=== PATIENT | female | born 1980 | race Caucasian/White ===

== ENCOUNTER 2022-05-13 14:20 | Outpatient (CLI) | payer MEDICAID, SELFPAY ==
--- NOTE | 2022-05-13 14:30 | CRLHL7_ITS ---
For Patients: As a result of the Cures Act, medical imaging exams and procedure reports are released immediately into your electronic medical record. You may view this report before your referring provider. If you have questions, please contact your health care provider. BILATERAL BREAST MRI WITHOUT GADOLINIUM, 05/13/2022 CLINICAL HISTORY: Pain and burning in breasts for two weeks. Evaluate for breast silicone implant rupture. COMPARISON: Breast MRI 05/18/2018. CONTRAST: None. TECHNIQUE: The patient was positioned prone and scanned using a breast coil. Several imaging sequences of both breasts were obtained using 1-1.5 mm thick slices with no gap including T2-weighted and silicone selective sequences in axial and sagittal planes. BILATERAL BREAST MRI FINDINGS: Post operative changes of BILATERAL mastectomies and implant reconstruction. BILATERAL silicone implants are intact. No evidence of intracapsular rupture or extracapsular silicone extravasation. No abnormal lymph nodes. IMPRESSIONS AND RECOMMENDATIONS: No evidence of silicone implant intracapsular rupture or extracapsular extravasation. If breast systems are focal then diagnostic ultrasound would be recommended for further evaluation. Note: This study is designed to evaluate for implant rupture and is not a breast cancer screening study. BI-RADS: N/A Dictated by Amira Burgos MD @ 05/14/2022 8:56:31 AM JR/Dictated by: Amira Burgos MD @ 05/14/2022 8:56:00 AM (Electronically Signed)
== END 2022-05-13 14:21 | disposition home or self-care (01) ==
LOC: MRI 14:21
PROVIDERS: PCP Family Medicine; Visit Provider Physician Assistant
DX: N64.4 Mastodynia (principal)
CPT/HCPCS: 77047

== ENCOUNTER 2022-05-15 14:30 | Outpatient (RCR) | payer MEDICAID, SELFPAY ==
--- NOTE | 2022-04-28 16:23 | ONC.NURNOTE ---
Patient would like to continue seeing Dr. Wise, so she will be staying with the [facility].
--- NOTE | 2022-05-01 15:09 | ONC.NURNOTE ---
Received call from pt noting she has had bruising around left reconstructed breast in the last few days. She called Dr. Camara's office (plastic surgery) and was seen there by a covering provider, who planned to review with Dr. Camara when she returns to clinic 05/11/22. Since that appt now she notices swelling around implant and pain along her chest wall. 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 Recommended pt call Dr. Camara's office with question of imaging to assess implant integrity; if unable to get in there, recommended f/u with PCP/a provider in next week to discuss breast US. 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 She will continue discussion with Dr. Camara and will keep us posted about imaging in the next week.
--- NOTE | 2022-05-15 16:42 | ONC.NURNOTE ---
Met with patient after her oncology visit. Assisted patient with scheduling her chest CT. Copy of todays note and MRI report faxed to Dr. Camara with request for them to call patient to schedule consultation to discuss removal of her implants.
== END 2022-06-15 23:59 | disposition home or self-care (01) ==
LOC: CCIC 14:30
PROVIDERS: PCP Family Medicine; Visit Provider Nurse Practitioner Family
DX: C50.912 Malignant neoplasm of unspecified site of left female breast (principal); Z17.1 Estrogen receptor negative status [ER-]; R07.89 Other chest pain; R20.8 Other disturbances of skin sensation
CPT/HCPCS: 99212; 99213; 99214; 99215

== ENCOUNTER 2022-05-18 08:54 | Outpatient (CLI) | payer MEDICAID, SELFPAY ==
--- NOTE | 2022-05-18 09:00 | CRLHL7_ITS ---
For Patients: As a result of the Century Cures Act, medical imaging exams and procedure reports are released immediately into your electronic medical record. You may view this report before your referring provider. If you have questions, please contact your health care provider. Indication: Breast Cancer; new onset chest pain, INFILTRATING DUCTAL CARCINOMA LT BREAST Technique: Post contrast CT chest. 75 cc Isovue 370 intravenous contrast. Please note that all CT scans at this facility use dose modulation, iterative reconstruction, and/or weight-based dosing when appropriate to reduce radiation dose to as low as reasonably achievable. Comparison: CT PET 01/16/2021. Breast MRI 05/13/2022 Findings: Postoperative changes of bilateral mastectomy with implant reconstruction noted. Similar fold within the left lateral implant. No axillary or mediastinal adenopathy. No evidence of internal mammary adenopathy. Mild residual thymic tissue in the anterior mediastinum. The upper abdomen is normal. Normal adrenal glands. Normal visualized liver. Lungs are clear. No infiltrate or fibrosis. No edema or effusion. No pneumothorax. A small 1.9 cm hiatal hernia is incidentally noted. Osseous structures are normal. No pulmonary nodule. Impression: No evidence of metastatic disease. Clear lungs. Please note that all CT scans at this facility use dose modulation, iterative reconstruction, and/or weight-based dosing when appropriate to reduce radiation dose to as low as reasonably achievable. Dictated by Jorje Christianson MD @ 05/18/2022 9:56:52 AM (Electronically Signed)
== END 2022-05-18 08:55 | disposition home or self-care (01) ==
LOC: CT 08:55
PROVIDERS: PCP Family Medicine; Visit Provider Nurse Practitioner Family
DX: C50.912 Malignant neoplasm of unspecified site of left female breast (principal); R07.89 Other chest pain
CPT/HCPCS: 71260; Q9967

== ENCOUNTER 2023-01-05 13:23 | Outpatient (RCR) | payer MEDICAID, SELFPAY ==
--- NOTE | 2022-06-23 08:01 | ONC.NURNOTE ---
Addendum entered by Vani Price 06/30/22 10:25: Patient called to update that she has been taking Gabapentin 200 mg QHS and this has significantly improved her pain. She is requesting an updated Rx be sent to her pharmacy. Original Note: Pt called reporting increase in pain along left chest wall/incisional burning consistent with pain pattern worked up by Tracy Muñiz CNP at appt 05/2022. Chest CT showed possible folding of left implant; pt following with Dr. Lowe with Plastic Surgery to have implants removed. Next available surgery date is not until 10/2022. She has been taking 100mg Gabapentin QHS, which has been managing well but is now not lasting long enough. Reviewed with Dr. Sumner. Pt to try taking 200mg at HS or 100-200 mg BID and report back to us which works better; prescription to be updated then.
== END 2023-07-04 23:59 | disposition home or self-care (01) ==
LOC: CCIC 13:23
PROVIDERS: PCP Family Medicine; Visit Provider Internal Medicine Hematology & Oncology
DX: C50.912 Malignant neoplasm of unspecified site of left female breast (principal); Z17.1 Estrogen receptor negative status [ER-]; Z90.13 Acquired absence of bilateral breasts and nipples
CPT/HCPCS: 99212; 99213

== ENCOUNTER 2023-10-19 07:30 | Outpatient (CLI) | payer MEDICAID, SELFPAY ==
--- OUTSIDE RECORDS SUMMARY | 2023-10-22 20:42 | XMS_ITS | Clinical Summary ---
Author Organization [facility] Address [address] [place] [address] Care Team Providers Care Marriage And Family Therapist Name Role Phone Lyn Murray MD Primary Care Provider + Allergies Active Allergy Reactions Criticality Noted Date Comments Beta Adrenergic Blockers 08/18/2022 Corticosteroids 08/18/2022 Formoterol 08/18/2022 Mometasone 08/18/2022 Shrimp Rash Low 08/31/2022 Medications Medication Sig Dispensed Refills Start Date End Date Status albuterol (PROAIR HFA/PROVENTIL HFA/VENTOLIN HFA) 108 (90 Base) MCG/ACT inhaler Inhale 2 puffs into the lungs every 6 hours as needed for shortness of breath, wheezing or cough Active vitamin D3 (CHOLECALCIFEROL) 50 mcg (2000 units) tablet Take 1 tablet by mouth daily Active fluticasone (FLONASE) 50 MCG/ACT nasal spray [place] 1 spray into both nostrils daily Active fluticasone (FLOVENT HFA) 44 MCG/ACT inhaler Inhale 1 puff into the lungs 2 times daily Active gabapentin (NEURONTIN) 100 MG capsule Take 200 mg by mouth At Bedtime Active ferrous fumarate 65 mg, [place]. FE,-Vitamin C 125 mg (VITRON C) 65-125 MG TABS tablet Take 1 tablet by mouth daily Active montelukast (SINGULAIR) 10 MG tablet Take 10 mg by mouth At Bedtime Active multivitamin w/minerals (MULTI-VITAMIN) tablet Take 1 tablet by mouth daily Active oxybutynin (DITROPAN) 5 MG tablet Take 5 mg by mouth 3 times daily Active venlafaxine (EFFEXOR) 100 MG tablet Take 100 mg by mouth 2 times daily Active venlafaxine (EFFEXOR) 75 MG tablet Take 75 mg by mouth 3 times daily Active oxyCODONE (ROXICODONE) 5 MG tabletIndications:St atus post implant removal from both breasts Take 1-2 tablets (5-10 mg) by mouth every 4 hours as needed for moderate to severe pain 20 tablet 09/02/2022 Active senna-docusate (SENOKOT-S/PERICOLAC E) 8.6-50 MG tabletIndications:St atus post implant removal from both breasts Take 1-2 tablets by mouth 2 times daily 20 tablet 09/02/2022 Active Social History Tobacco Use Types Packs/Day Years Used Date Smoking Tobacco: Never Smokeless Tobacco: Never Tobacco Cessation:Counseling Given: Not Answered Alcohol Use Standard Drinks/Week Comments Not Currently 0 (1 standard drink = 0.6 oz pur e alcohol) Adolescent Education Answer Date Record ed Getting School Help Needed Not on file 01/23 Sex and Gender Information Value Date Recorded Sex Assigned at Not on file Gender Identity Not on file Sexual Orientation Not on file Last Filed Vital Signs Vital Sign Reading Time Taken Comments Blood Pressure 136/90 09/02/2022 6:38 PM CDT Pulse 92 09/02/2022 4:30 PM CDT Temperature 36.3 ??C (97.4 ??F) 09/02/2022 4:30 PM CD T Respiratory Rate 12 09/02/2022 4:30 PM CDT Oxygen Saturation 96% 09/02/2022 4:15 PM CDT Inhaled Oxygen Concentration - - Weight 85 kg (187 lb 6.4 oz) 09/02/2022 10:43 AM CDT Height 171.5 cm (5' 7.5) 09/02/2022 10:43 AM CD T Body Mass Index 28.92 09/02/2022 10:43 AM CDT Plan of Treatment Health Maintenance Due Date Last Done Comments ADVANCE CARE PLANNING 1981 ANNUAL REVIEW OF HM ORDERS 1981 GLUCOSE 1981 YEARLY PREVENTIVE VISIT 1981 HIV SCREENING 1996 HEPATITIS C SCREENING 10/21/1999 HEPATITIS B IMMUNIZATION (1 of 3 - 19+ 3-dose series) 2000 LIPID 2021 COVID-19 Vaccine (2022-2 4 season) 2023 05/28/2021, 08/09/2020, 07/17/2020 PHQ-2 (once per calendar year) 2023 PAP 07/05/2023 07/04/2020, 07/04/2020 INFLUENZA VACCINE (Season Ended) 2024 01/06/2021, 04/19/2020 DTAP/TDAP/TD IMMUNIZATION (2 - Td or Tdap) 07/06/2027 07/05/2017 HPV IMMUNIZATION Aged Out No longer e ligible based on patient's age to complete this topic IPV IMMUNIZATION Aged Out No longer e ligible based on patient's age to complete this topic MENINGITIS IMMUNIZATION Aged Out No l onger eligible based on patient's age to complete this topic Pneumococcal Vaccine: Pediatrics (0 to 5 Years) and At-Risk Patients (6 to 64 Years) Aged Out No longer eligible b ased on patient's age to complete this topic RSV MONOCLONAL ANTIBODY Aged Out No l onger eligible based on patient's age to complete this topic Medical Devices Explanted Type Area Machine Striper Device Identifier Shelf Expiration Date Model / Serial / Lot Silicone Breast Implants Explanted:Qty: 2 on 09/02/[address] [facility] Bilateral: Breast Care Teams Marriage And Family Therapist Relationship Specialty Start Date End Date Lyn Murray MD [facility] [address] [place] [address] PCP - General Family Medicine 08/19/22
--- OUTSIDE RECORDS SUMMARY | 2023-10-22 20:42 | XMS_ITS | Referral Summary ---
Author Organization [facility] Address [address] [place] [address] Care Team Providers Care Tank Setter Name Role Phone Lyn Murray MD Primary [...] Active fluticasone (FLONASE) 50 MCG/ACT nasal spray [place] 1 spray into both nostrils daily Active fluticasone (FLOVENT HFA) 44 MCG/ACT inhaler Inhale 1 puff into the lungs 2 times daily Active gabapentin (NEURONTIN) 100 MG capsule Take 200 mg by mouth At Bedtime Active ferrous fumarate 65 mg, [place]. FE,-Vitamin C 125 mg (VITRON C) 65-125 [...] 09/02/2022 10:43 AM CDT Plan of Treatment Not on file Medical Devices Explanted Type Area Remote Sensing Technologist Device Identifier Shelf Expiration Date Model / Serial / Lot Silicone Breast Implants Explanted:Qty: 2 on 09/02/2022 at [facility] Bilateral: Breast Care Teams Tank Setter Relationship Specialty Start Date End Date Lyn Murray MD [facility] [address] [place] [address] PCP - General Family Medicine 08/19/22
--- OUTSIDE RECORDS SUMMARY | 2023-10-22 20:42 | XMS_ITS | Clinical Summary ---
Author Organization [facility] [facility] Address [place], [place] [address] Care Team Providers Care Supervisor Bottle House Cleaners Name Role Phone Lyn Murray MD Primary Care Provider + Allergies Active Allergy Reactions Criticality Noted Date Comments Beta-Adrenergic Agents *Unknown 03/24/2019 Corticosteroids (Glucocorticoids) *Unknown Formoterol Fumarate *Unknown 03/24/2019 Mometasone Furoate *Unknown 03/24/2019 Medications Medication Sig Dispensed Refills Start Date End Date Status oxyCODONE-acetamin ophen, 5-325 mg, (PERCOCET) 5-325 mg per tabletIndications: S/P breast reconstruction, bilateral Take 1-2 tablets by mouth every 4 hours if needed for Pain Max acetaminophen dose: 4000mg in 24 hrs. 30 tablet 04/13/2019 Active sennosides-docusat e, 8.6-50 mg, (SENOKOT S) 8.6-50 mg tabletIndications: S/P breast reconstruction, bilateral Take 1-2 tablets by mouth 2 times daily. 20 tablet 04/13/2019 Active Multivitamins with Fluoride (MULTI-VITAMIN ORAL) Take 1 tablet by mouth once daily. Active miscellaneous medical supply misc As directed 1 tablet once daily. 5000 IU Active iron,carbonyl/asco rbic acid (VITRON-C ORAL) Take 1 tablet by mouth once daily. Active venlafaxine HCl (EFFEXOR ORAL) Take 1 capsule by mouth once daily. Active montelukast (SINGULAIR) 10 mg tablet Take 10 mg by mouth at bedtime. Active MAGNESIUM GLUCONATE ORAL Take 1 tablet by mouth. Active traZODone (DESYREL) 50 mg tablet Take 50 mg by mouth at bedtime. Active albuterol sulfate (ALBUTEROL INHL) Inhale by mouth. Ac tive fluticasone propionate (FLONASE NASL) Inhale in the nostril(s). Active LORAZEPAM ORAL Take by mouth each time if needed. 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 Triple negative 07/03. Triple negative malignant neoplasm of breast Social History Tobacco Use Types Packs/Day Years Used Date Smoking Tobacco: Never Smokeless Tobacco: Never Alcohol Use Standard Drinks/Week Comments Yes 1 (1 standard drink = 0.6 oz pur e alcohol) Occasional Sex and Gender Information Value Date Recorded Sex Assigned at Not on file Gender Identity Not on file Sexual Orientation Not on file Obstetrics History Para Term AB IAB SAB Ectopic Multiple Livin g Live Births 5 4 Date Outcome GA Total Labor Labor/2nd/3rd Weight Sex Type Anes PTL Albertina A1 A5 Name Clin Para Para Para Para Last Filed Vital Signs Vital Sign Reading Time Taken Comments Blood Pressure 146/89 04/13/2019 6:06 PM [facility] Pulse 80 04/13/2019 6:06 PM [facility] Temperature 36 ??C (96.8 ??F) 04/13/2019 6:06 PM [facility] Respiratory Rate 16 04/13/2019 6:06 PM [facility] Oxygen Saturation 95% 04/13/2019 6:06 PM [facility] Inhaled Oxygen Concentration - - Weight 89.8 kg (197 lb 14.4 oz) 019 12:03 PM [facility] Height 171.5 cm (5' 7.5) 04/13/2019 12 :03 PM [facility] Body Mass Index 30.54 04/13/2019 12:03 PM [facility] Plan of Treatment Health Maintenance Due Date Last Done Comments Tdap 1992 Depression screening for age 12+ 1993 HIV for age 15-65 1996 BMI (ht and wt on same day) for age 18+ 10/21/1999 Hepatitis C screening for age 18-79 10/21/1999 Tetanus booster 2001 COVID-19 vaccine series (2022-24 season) 2023 Pap test for age 21-65 07/05/2023 , 07/04/2020, 07/05/2017, Additional history exists Influenza for age 9-49 01/02/2024 Pneumococcal series for age 6-64 Aged Out No longer eligible based on patient's age to complete this topic Medical Devices Implanted Type Area Media Analyst Device Identifier Shelf Expiration Date Model / Serial / Lot [id number] ast 560cc Inspira Cohesive Smooth Mod Gel Implanted:Qty: 1 on 04/13/2019 by Lizett Camara MD at [facility] Explanted:at [facility] (Quantity not on file) Left: Breast [employer] - [place] 12/31/2023 SCM-[id number]# / [id number] / [id number] ast 605cc Inspira Cohesive Smooth Full Gel Implanted:Qty: 1 on 04/13/2019 by Lizett Camara MD at [facility] Explanted:at [facility] (Quantity not on file) Right: Breast [employer] [place] 2023 SCF-605# / [id number] / Natrelle Inspira Sizer Full Profile Implanted:Qty: 1 on 04/13/2019 by Lizett Camara MD at [facility] Right: Breast 08/29/2023 [id number]-F605 / [id number] / Description:NATRELLE INSPIRA SIZER FULL PROFILE Explanted Type Area Media Analyst Device Identifier Shelf Expiration Date Model / Serial / Lot Natrelle Inspira Sizer Moderate Profile Explanted:Qty: 1 on 04/13/2019 by Lizett Camara MD at [facility] Right: Breast [id number] / [id number] / Description:NATRELLE INSPIRA SIZER MODERATE PROFILE Natrelle Inspira Sizer Full Profile Explanted:Qty: 1 on 04/13/2019 by Lizett Camara MD at [facility] Right: Breast 01/16/2024 [id number] / [id number] / Description:RASHEL SALGUERO SIZER FULL PROFILE Procedures Procedure Name Priority Date/Time Associated Diagnosis Comments CHEESE PACKER THIN PREP PAP SCREEN IMAGED Routine 07/04/2020 1:30 PM [facility] from Last 3 Months or Most Recently Relevant to Health Maintenance Results * CHEESE PACKER THIN PREP PAP SCREEN IMAGED (07/04/2020 1:30 PM [facility]) Case Report Gynecologic Cytology Report ? Case: [id number] ? Authorizing Provider: ??Lyn Murray MD ??Collected: ? 07/04/2020 1330 ? Ordering Location: ? [facility] ?Received: ?07/08/2020 0802 ? First Screen: ?[place] ? Specimen: ?CHEESE PACKER ThinPrep Vial Screening, Cervical/Vaginal ? 07/16/2020 1:59 PM CDT [facility] INTERPRETATION/ RESULT NEGATIVE FOR INTRAEPITHELIAL LESION OR MALIGNANCY (NIL) (none) 07/16/2020 1:59 PM CDT [facility] IMEN ADEQUACY Satisfactory for evaluation Endocervical component present 07/16/2020 1:59 PM CDT [facility] HPV REQUEST HPV and PAP 07/16/2020 1:59 PM CDT [facility] Last Pap Date 07/05/2017 07/16/2020 1:59 PM CDT [facility] Last Pap Result 1:59 PM CDT [facility] Comment:normal Additional Information 07/16/2020 1:59 PM CDT [facility] Comment: Interpreted at [facility] - [address] [place] [id number] Automated Review Successful 07/16/2020 1:59 PM CDT [facility] Comment:Specimen processed s uccessfully by automated chemistry technologist device, Eye-QPrep Imaging System, [employer] ANCILLARY TESTING CHEESE PACKER HPV Ordered, Please see separate report 07/16/2020 1:59 PM CDT [facility] Note The pap test is a screening technique, not a diagnostic procedure. It is used primarily to screen for squamous cancers and precursor lesions. Published studies have shown that it is subject to both false negative and false positive results. The pap test should not be used as the sole means to diagnose or exclude pre-malignant and malignant lesions. 07/16/2020 1:59 PM CDT [facility] Other (Cervical/Vagina l) 07/04/2020 1:30 PM [facility] 07/08/2020 8:02 AM [facility] Lyn Murray MD [facility] [address] [place] [address], [place] from Last 3 Months or Most Recently Relevant to Health Maintenance Advance Directives * Full Code (Latest Code Status on File) Date Activated Date Inactivated Comments 04/13/2019 11:32 AM 04/13/2019 10:27 PM Question Answer Comments Code Status Discussion: Not Discussed Care Teams Supervisor Bottle House Cleaners Relationship Specialty Start Date End Date Lyn Murray MD [address] [place] [address] PCP - General Family Practice 04/11/19
== END 2023-10-19 07:31 | disposition home or self-care (01) ==
LOC: NFLDREF 10-22 20:41
PROVIDERS: PCP Family Medicine; Referring Provider Family Medicine; Visit Provider Family Medicine
DX: R74.01 Elevation of levels of liver transaminase levels (principal); E03.9 Hypothyroidism, unspecified; G25.81 Restless legs syndrome; E78.5 Hyperlipidemia, unspecified; E55.9 Vitamin D deficiency, unspecified
CPT/HCPCS: 80053; 80061; 82652; 82728; 84439; 84443

== ENCOUNTER 2023-12-01 15:00 | Outpatient (RCR) | payer MEDICAID, SELFPAY | END 2024-01-01 23:59 | disposition home or self-care (01) | LOC: CCIC 15:00 | PROVIDERS: PCP Family Medicine; Visit Provider Internal Medicine Hematology & Oncology | DX: C50.912 Malignant neoplasm of unspecified site of left female breast (principal); Z17.1 Estrogen receptor negative status [ER-]; Z90.13 Acquired absence of bilateral breasts and nipples | CPT/HCPCS: 99213; 99214; G0463 ==

== ENCOUNTER 2024-01-18 07:30 | Outpatient (CLI) | payer MEDICAID, SELFPAY ==
--- OUTSIDE RECORDS SUMMARY | 2024-01-20 11:26 | XMS_ITS | Clinical Summary ---
Author Organization [facility] Address [address] [place] [address] Care Team Providers Care Manufacturer Representative Name Role Phone Lyn Murray MD Primary [...] Active fluticasone (FLONASE) 50 MCG/ACT nasal spray [place] 1 spray into both nostrils daily Active fluticasone (FLOVENT HFA) 44 MCG/ACT inhaler Inh[place] 1 puff into the lungs 2 times daily Active gabapentin (NEURONTIN) 100 MG capsule Take 200 mg by mouth At Bedtime Active ferrous fumarate 65 mg, [place]. FE,-Vitamin C 125 mg (VITRON C) 65-125 [...] - 19+ 3-dose series) 2000 LIPID 2021 PHQ-2 (once per calendar year) 2023 PAP 07/05/2023 07/04/2020, 07/04/2020 COVID-19 Vaccine (4 - 2024-2 5 season) 2024 05/28/2021, 08/09/2020, 07/17/2020 INFLUENZA VACCINE (#1) 2024 , 04/19/2020 DTAP/TDAP/TD IMMUNIZATION (2 - Td or [...] this topic Medical Devices Explanted Type Area Conveyor Installer Device Identifier Shelf Expiration Date Model / Serial / Lot Silicone Breast Implants Explanted:Qty: 2 on 09/02/2022 at [facility] Bilateral: Breast Care Teams Manufacturer Representative Relationship Specialty Start Date End Date Lyn Murray MD [facility] [address] [place] [address] PCP - General Family Medicine 08/19/22
--- OUTSIDE RECORDS SUMMARY | 2024-01-20 11:26 | XMS_ITS | Clinical Summary ---
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 Triple negative 07/03. [...] Comments Blood Pressure 146/89 04/13/2019 6:06 PM FLOOR HAND Pulse 80 04/13/2019 6:06 PM FLOOR HAND Temperature 36 ??C (96.8 ??F) 04/13/2019 6:06 PM FLOOR HAND Respiratory Rate 16 04/13/2019 6:06 PM FLOOR HAND Oxygen Saturation 95% 04/13/2019 6:06 PM FLOOR HAND Inhaled Oxygen Concentration - - Weight 89.8 kg (197 lb 14.4 oz) 019 12:03 PM FLOOR HAND Height 171.5 cm (5' 7.5) 04/13/2019 12 :03 PM FLOOR HAND Body Mass Index 30.54 04/13/2019 12:03 PM FLOOR HAND Plan of Treatment Health Maintenance Due Date Last Done Comments Tdap 1992 Depression screening for age 12+ 1993 HIV for age 15-65 1996 BMI (ht and wt on same day) for age 18+ 10/21/1999 Hepatitis C screening for age 18-79 10/21/1999 Tetanus booster 2001 Pap test for age 21-65 07/05/2023 , 07/04/2020, 07/05/2017, Additional history exists COVID-19 vaccine series ( season) 2024 Influenza for age 9-49 01/02/2024 Pneumococcal series for age 6-64 Aged Out No longer eligible based on patient's age to complete this topic Medical Devices Implanted Type Area Envelope Folder Device Identifier Shelf Expiration Date Model / Serial / Lot [id number] ast 560cc Inspira Cohesive Smooth Mod Gel Implanted:Qty: 1 on 04/13/2019 by Lizett Camara MD at [facility] Explanted:at [facility] (Quantity not on file) Left: Breast [employer] - Inamed 12/31/2023 SCM-560# / [id number] / [id number] ast 605cc Inspira Cohesive Smooth Full Gel Implanted:Qty: 1 on 04/13/2019 by Lizett Camara MD at [facility] Explanted:at [facility] (Quantity not on file) Right: Breast [employer] - [employer]amed 2023 SCF-605# / [id number] / Natrelle Inspira Sizer Full Profile Implanted:Qty: 1 on 04/13/2019 by Lizett Camara MD at [facility] Right: Breast 08/29/2023 MS-F605 / [id number] / Description:NATRELLE INSPIRA SIZER FULL PROFILE Explanted Type Area Envelope Folder Device Identifier Shelf Expiration Date Model / Serial / Lot Natrelle Inspira Sizer Moderate Profile Explanted:Qty: 1 on 04/13/2019 by Lizett Camara MD at [facility] Right: Breast [id number]-M650 / [id number] / Description:NATRELLE INSPIRA SIZER MODERATE PROFILE Natrelle Inspira Sizer Full Profile Explanted:Qty: 1 on 04/13/2019 by Lizett Camara MD at [facility] Right: Breast 01/16/2024 [id number]605 / [id number] / Description:RASHEL SALGUERO SIZEKevin FULL PROFILE Procedures Procedure Name Priority Date/Time Associated Diagnosis Comments TRIMMER MACHINE THIN PREP PAP SCREEN IMAGED Routine 07/04/2020 1:30 PM FLOOR HAND from Last 3 Months or Most Recently Relevant to Health Maintenance Results * TRIMMER MACHINE THIN PREP PAP SCREEN IMAGED (07/04/2020 1:30 PM FLOOR HAND) Case Report Gynecologic Cytology Report ? Case: [id number] ? Authorizing Provider: ??Lyn Murray MD ??Collected: ? 07/04/2020 1330 ? Ordering Location: ? [facility] ?Received: ?07/08/2020 0802 ? First Screen: ?[place] ? Specimen: ?TRIMMER MACHINE ThinPrep Vial Screening, Cervical/Vaginal ? 07/16/2020 1:59 PM CDT [facility] LABORATORY-C ENTRAL LABORATORY INTERPRETATION/ RESULT NEGATIVE FOR INTRAEPITHELIAL LESION OR MALIGNANCY (NIL) (none) 07/16/2020 1:59 PM CDT [facility] IMEN ADEQUACY Satisfactory for evaluation Endocervical component present 07/16/2020 1:59 PM CDT [facility] ENTRAL LABORATORY HPV REQUEST HPV and PAP 07/16/2020 1:59 PM CDT [facility] ENTRAL LABORATORY Last Pap Date 07/05/2017 07/16/2020 1:59 PM CDT [facility] Last Pap Result 1:59 PM CDT [facility] ENTRAL LABORATORY Comment:normal Additional Information 07/16/2020 1:59 PM CDT [facility] Comment: Interpreted at [facility] - [address] [place] [address] Automated Review Successful 07/16/2020 1:59 PM CDT [facility] Comment:Specimen processed s uccessfully by automated service car driver device, Hive MediaPrep Imaging System, [employer] ANCILLARY TESTING TRIMMER MACHINE HPV Ordered, Please see separate report 07/16/2020 1:59 PM CDT [facility] LABORAT[facility] Note The pap test is a [...] and malignant lesions. 07/16/2020 1:59 PM CDT [facility] Other (Cervical/Vagina l) 07/04/2020 1:30 PM FLOOR HAND 07/08/2020 8:02 AM FLOOR HAND Lyn Murray MD PATHOLOGY/CYTOLO GY [facility] [address] [place] [address], [place] from Last 3 Months or Most Recently Relevant to Health Maintenance Advance Directives * Full Code (Latest Code Status on File) Date Activated Date Inactivated Comments 04/13/2019 11:32 AM 04/13/2019 10:27 PM Question Answer Comments Code Status Discussion: Not Discussed Care Teams Dog Pound Attendant Relationship Specialty Start Date End Date Lyn Murray MD [address] [place] [address] PCP - General Family Practice 04/11/19
--- OUTSIDE RECORDS SUMMARY | 2024-01-20 11:26 | XMS_ITS | Referral Summary ---
Author Organization [facility] Address [address] [place] [address] Care Team Providers Care Brim Pouncing Machine Operator Name Role Phone Lyn Murray MD Primary [...] Active fluticasone (FLONASE) 50 MCG/ACT nasal spray [place] 1 spray into both nostrils daily Active fluticasone (FLOVENT HFA) 44 MCG/ACT inhaler Inhale 1 puff into the lungs 2 times daily Active gabapentin (NEURONTIN) 100 MG capsule Take 200 mg by mouth At Bedtime Active ferrous fumarate 65 mg, [place]. FE,-Vitamin C 125 mg (VITRON C) 65-125 [...] on file Medical Devices Explanted Type Area Pasteuriser Operator Device Identifier Shelf Expiration Date Model / Serial / Lot Silicone Breast Implants Explanted:Qty: 2 on 09/02/2022 at [facility] Bilateral: Breast Care Teams Brim Pouncing Machine Operator Relationship Specialty Start Date End Date Lyn Murray MD [facility] [address] [place] [address] PCP - General Family Medicine 08/19/22
== END 2024-01-18 07:31 | disposition home or self-care (01) ==
LOC: NFLDREF 01-20 11:23
PROVIDERS: PCP Family Medicine; Referring Provider Family Medicine; Visit Provider Family Medicine
DX: R79.89 Other specified abnormal findings of blood chemistry (principal); E03.9 Hypothyroidism, unspecified
CPT/HCPCS: 80053; 84443

== ENCOUNTER 2024-02-24 13:15 | Outpatient (CLI) | payer MEDICAID, SELFPAY ==
--- OUTSIDE RECORDS SUMMARY | 2024-02-24 13:18 | XMS_ITS | Referral Summary ---
Author Organization [facility] Address [address] [place] [address] Care Team Providers Care Scales Inspector Name Role Phone Lyn Murray MD Primary Care Provider + Allergies Active Allergy Reactions Criticality Noted Date Comments Beta Adrenergic Blockers 08/18/2022 Corticosteroids 08/18/2022 Formoterol 08/18/2022 Mometasone 08/18/2022 Shrimp Rash Low 08/31/2022 Medications albuterol (PROAIR HFA/PROVENTIL HFA/VENTOLIN HFA) 108 (90 Base) MCG/ACT inhaler Inhale 2 puffs into the lungs every 6 hours as needed for shortness of breath, wheezing or cough Active vitamin D3 (CHOLECALCIFERO L) 50 mcg (2000 units) tablet Take 1 tablet by mouth daily Active fluticasone (FLONASE) 50 MCG/ACT nasal spray [place] 1 spray into both nostrils daily Active fluticasone (FLOVENT HFA) 44 MCG/ACT inhaler Inhale 1 puff into the lungs 2 times daily Active gabapentin (NEURONTIN) 100 MG capsule Take 200 mg by mouth At Bedtime Active ferrous fumarate 65 mg, [place]. FE,-Vitamin C 125 mg (VITRON C) 65-125 [...] times daily Active oxyCODONE (ROXICODONE) 5 MG tabletIndicatio ns:Status post implant removal from both breasts Take 1-2 tablets (5-10 mg) by mouth every 4 hours as needed for moderate to severe pain 20 tablet 3 Active senna-docusate (SENOKOT-S/KRISTY COLACE) 8.6-50 MG tabletIndicatio ns:Status post implant removal from both breasts Take 1-2 tablets by mouth 2 times daily 20 tablet 3 Active Social History Tobacco Use Types Packs/Day Years Used Date Smoking Tobacco: Never Smokeless Tobacco: Never Tobacco Cessation:Counseling Given: Not Answered Alcohol Use Standard Drinks/Week Comments Not Currently 0 (1 standard drink = 0.6 oz pur e alcohol) Adolescent Education Answer Date Record ed Getting School Help Needed Not on file 01/23 Comments No Sex and Gender Information Value Date Recorded Sex Assigned at Not on file Legal Sex Female 12:02 PM CDT Gender Identity Not on file Sexual Orientation [...] on file Medical Devices Explanted Type Area Artificial Inseminator Device Identifier Shelf Expiration Date Model / Serial / Lot Silicone Breast Implants Explanted:Qty: 2 on 09/02/2022 at [facility] Bilateral: Breast Insurance [facility] Care Teams Scales Inspector Relationship Specialty Start Date End Date Lyn Murray MD [facility] & [address] [address] PCP - General Family Medicine 08/19/22
--- OUTSIDE RECORDS SUMMARY | 2024-02-24 13:18 | XMS_ITS | Clinical Summary ---
Author Organization [employer] [facility] Address [place], [place] [address] Care Team Providers Care Creative Writer Name Role Phone Lyn Murray MD Primary [...] gene 05/31/2018 Overview (05/31/2018): Pathogenic variant c.68_72dup (p.[id number]*3) Anxiety 05/18/2018 Depression (emotion) 05/18/2018 Sleep apnea [...] Comments Blood Pressure 146/89 04/13/2019 6:06 PM IRON WORKER Pulse 80 04/13/2019 6:06 PM IRON WORKER Temperature 36 ??C (96.8 ??F) 04/13/2019 6:06 PM IRON WORKER Respiratory Rate 16 04/13/2019 6:06 PM IRON WORKER Oxygen Saturation 95% 04/13/2019 6:06 PM IRON WORKER Inhaled Oxygen Concentration - - Weight 89.8 kg (197 lb 14.4 oz) 019 12:03 PM IRON WORKER Height 171.5 cm (5' 7.5) 04/13/2019 12 :03 PM IRON WORKER Body Mass Index 30.54 04/13/2019 12:03 PM IRON WORKER Plan of Treatment Health Maintenance Due Date [...] this topic Medical Devices Implanted Type Area Cloth Wire Weaver Device Identifier Shelf Expiration Date Model / Serial / Lot [id number] ast 560cc Inspira Cohesive Smooth Mod Gel Implanted:Qty: 1 on 04/13/2019 by Lizett Camara MD at [facility] Explanted:at [facility] (Quantity not on file) Left: Breast [employer] - Inamed 12/31/2023 SCM-560# / [id number] / [id number] ast 605cc Inspira Cohesive Smooth Full Gel Implanted:Qty: 1 on 04/13/2019 by Lizett Camara MD at [facility] Explanted:at [facility] (Quantity not on file) Right: Breast [employer] - [employer]amed 2023 SCF-605# / [id number] / Natrelle Inspira Sizer Full Profile Implanted:Qty: 1 on 04/13/2019 by Lizett Camara MD at [facility] Right: Breast 08/29/2023 MS-F605 / [id number] / Description:NATRELLE INSPIRA SIZER FULL PROFILE Explanted Type Area Cloth Wire Weaver Device Identifier Shelf Expiration Date Model / Serial / Lot Natrelle Inspira Sizer Moderate Profile Explanted:Qty: 1 on 04/13/2019 by Lizett Camara MD at [facility] Right: Breast [id number]-M650 / [id number] / Description:NATRELLE INSPIRA SIZER MODERATE PROFILE Natrelle Inspira Sizer Full Profile Explanted:Qty: 1 on 04/13/2019 by Lizett Camara MD at [facility] Right: Breast 01/16/2024 [facility]-F605 / [id number] / Description:RASHEL SALGUERO SIZEKevin FULL PROFILE Procedures Procedure Name Priority Date/Time Associated Diagnosis Comments FURNITURE UPHOLSTERY MECHANIC THIN PREP PAP SCREEN IMAGED Routine 07/04/2020 1:30 PM IRON WORKER from Last 3 Months or Most Recently Relevant to Health Maintenance Results * FURNITURE UPHOLSTERY MECHANIC THIN PREP PAP SCREEN IMAGED (07/04/2020 1:30 PM IRON WORKER) Case Report Gynecologic Cytology Report ? Case: [id number] ? Authorizing Provider: ??Lyn Murray MD ??Collected: ? 07/04/2020 1330 ? Ordering Location: ? [facility] ?Received: ?07/08/2020 0802 ? First Screen: ?Al [place] ? Specimen: ?FURNITURE UPHOLSTERY MECHANIC ThinPrep Vial Screening, Cervical/Vaginal ? 07/16/2020 1:59 PM CDT [facility] LABORATORY-C ENTRAL LABORATORY INTERPRETATION/ RESULT NEGATIVE FOR INTRAEPITHELIAL LESION OR MALIGNANCY (NIL) (none) 07/16/2020 1:[address] [facility] IMEN ADEQUACY Satisfactory for evaluation Endocervical component present 07/16/2020 1:59 PM CDT [facility] ENTRAL LABORATORY HPV REQUEST HPV and PAP 07/16/2020 1:59 PM CDT [facility] ENTRAL LABORATORY Last Pap Date 07/05/2017 07/16/2020 1:59 PM CDT [facility] LABORATORY Last Pap Result 1:59 PM CDT [facility] ENTRAL LABORATORY Comment:normal Additional Information 07/16/2020 1:59 PM CDT [facility] LAB[facility]ATORY Comment: Interpreted at [facility] - [address] [place] [id number] Automated Review Successful 07/16/2020 1:59 PM CDT [facility] LABORATORY Comment:Specimen processed s uccessfully by automated loader technician device, [employer]Prep Imaging System, [employer] ANCILLARY TESTING FURNITURE UPHOLSTERY MECHANIC HPV Ordered, Please see separate report 07/16/2020 1:59 PM CDT [facility] Note The pap test is a [...] and malignant lesions. 07/16/2020 1:[address] [facility] Other (Cervical/Vagina l) 07/04/2020 1:30 PM IRON WORKER 07/08/2020 8:02 AM IRON WORKER Lyn Murray MD PATHOLOGY/CYTOLO GY [facility] [address] [place] [address], [place] from Last 3 Months or Most Recently Relevant to Health Maintenance Advance Directives * Full Code (Latest Code Status on File) Date Activated Date Inactivated Comments 04/13/2019 11:32 AM 04/13/2019 10:27 PM Question Answer Comments Code Status Discussion: Not Discussed Care Teams Creative Writer Relationship Specialty Start Date End Date Lyn Murray MD [address] [place] [address] PCP - General Family Practice 04/11/19
--- OUTSIDE RECORDS SUMMARY | 2024-02-24 13:18 | XMS_ITS | Clinical Summary ---
Author Organization [facility] Address [address] [place] [address] Care Team Providers Care Bsw Name Role Phone Lyn Murray MD Primary [...] Active fluticasone (FLONASE) 50 MCG/ACT nasal spray [place] 1 spray into both nostrils daily Active fluticasone (FLOVENT HFA) 44 MCG/ACT inhaler Inhale 1 puff into the lungs 2 times daily Active gabapentin (NEURONTIN) 100 MG capsule Take 200 mg by mouth At Bedtime Active ferrous fumarate 65 mg, [place]. FE,-Vitamin C 125 mg (VITRON C) 65-125 [...] 07/05/2023 07/04/2020, 07/04/2020 COVID-19 Vaccine (4 - 2023-2 5 season) 2024 05/28/2021, 08/09/2020, 07/17/2020 INFLUENZA VACCINE (#1) 2024 , 04/19/2020 DTAP/TDAP/TD IMMUNIZATION (2 - Td or Tdap) 07/06/2027 07/05/2017 RSV VACCINE (1 - 1-dose 75+ series) 2056 HPV IMMUNIZATION Aged Out No longer e [...] this topic Medical Devices Explanted Type Area Furniture Maker Device Identifier Shelf Expiration Date Model / Serial / Lot Silicone Breast Implants Explanted:Qty: 2 on 09/02/2022 at [facility] Bilateral: Breast Insurance [facility] Care Teams Bsw Relationship Specialty Start Date End Date Lyn Murray MD [facility] [address] [place], [place] [id number] PCP - General Family Medicine 08/19/22
--- NOTE | 2024-02-24 13:30 | CRLHL7_ITS ---
For Patients: As a result of the Century Cures Act, medical imaging exams and procedure reports are released immediately into your electronic medical record. You may view this report before your referring provider. If you have questions, please contact your health care provider. DXA BONE MINERAL DENSITY STUDY Current height (in): 67.5. Weight (lb): 195.0. Menopause age: 38. Ethnicity: White. Reason for exam: Asymptomatic postprocedural ovarian failure. 1. Have you had a previous hip or vertebral fracture? No. 2. Have you had any fractures during your adult life which did not result from significant trauma (e.g., auto accident)? No. 3. Did either of your parents have a hip fracture? No. 4. Do you smoke? No. 5. Have you ever taken Glucocorticoids? No. 6. Do you have rheumatoid arthritis? No. 7. Do you have secondary osteoporosis? No. 8. Do you drink 3 or more alcoholic drinks per day? No. 9. Are you being treated for osteoporosis? No. 10. Have you ever taken any of the following medications: Actonel, Evista, Fosamax, Miacalcin, Reclast, Boniva, Forteo, HRT (i.e. estrogen/hormone therapy), Protelos, Prolia, Vitamin D, Calcium, other ??? please specify. ANSWER: Yes, vitamin D, calcium. 11. Do you have any of the following medical conditions: Anorexia or bulimia, asthma or emphysema, end stage renal disease, hyperparathyroidism, any seizure disorders, cancer, inflammatory bowel diseases, hysterectomy, other ??? please specify. ANSWER: Yes, asthma, hyperparathyroidism, cancer. 12. What was your maximum height (inches)? 68. 13. Do you perform weight bearing exercise regularly? Yes. 14. Do you regularly consume dairy products? Yes. 15. Do you drink caffeinated beverages? Yes. 16. At what age did your period start? 14. 17. Are you premenopausal? No. 18. How many full-term pregnancies have you had? 0. 19. Have you ever missed your period for more than 6 months in a row (not including or menopause)? Yes. TECHNIQUE: Bone mineral density study was performed using the [employer]. FINDINGS: The results of the study expressed as bone mineral density (BMD) are as follows: Lumbar spine L1 to L4: BMD: 0.946 g/cm2. T-score: -0.9. Z-score: -0.6 Neck Left: BMD: 0.789 g/cm2. T-score: -0.5. Z-score: -0.2 Right: BMD: 0.773 g/cm2. T-score: -0.7. Z-score: -0.3 Total Left: BMD: 1.045 g/cm2. T-score: 0.8. Z-score: 1.1 Right: BMD: 1.051 g/cm2. T-score: 0.9. Z-score: 1.1 IMPRESSION: Normal. Jorje Christianson M.D. Diagnostic Radiologist [email or web address] Transcribed: 12:52 pm DW/Dictated by: Jorje Christianson MD @ 02/25/2024 12:07:00 PM (Electronically Signed)
== END 2024-02-24 13:16 | disposition home or self-care (01) ==
LOC: RAD 13:16
PROVIDERS: PCP Family Medicine; Visit Provider Family Medicine
DX: E89.40 Asymptomatic postprocedural ovarian failure (principal)
CPT/HCPCS: 77080

== ENCOUNTER 2024-10-19 07:26 | Outpatient (CLI) | payer MEDICAID, SELFPAY | END 2024-10-19 07:27 | disposition home or self-care (01) | LOC: NFLDREF 10-23 13:46 | PROVIDERS: PCP Family Medicine; Referring Provider Family Medicine; Visit Provider Family Medicine | DX: E55.9 Vitamin D deficiency, unspecified (principal); E78.5 Hyperlipidemia, unspecified; G25.81 Restless legs syndrome; R79.89 Other specified abnormal findings of blood chemistry; E03.9 Hypothyroidism, unspecified; M81.0 Age-related osteoporosis without current pathological fracture | CPT/HCPCS: 80053; 80061; 82306; 82728; 84443 ==

== ENCOUNTER 2025-04-04 09:26 | Outpatient (CLI) | payer MEDICAID, SELFPAY | END 2025-04-04 09:27 | disposition home or self-care (01) | LOC: NFLDREF 04-05 15:29 | PROVIDERS: PCP Family Medicine; Referring Provider Family Medicine; Visit Provider Family Medicine | DX: E03.9 Hypothyroidism, unspecified (principal) | CPT/HCPCS: 84443 ==